=== PATIENT | female | born 1985 | race Caucasian/White ===

== ENCOUNTER → 2024-10-19 | Outpatient (CLI) | payer BC, SELFPAY ==
[2024-10-19 18:04] LABS: Hepatitis B Surface Ab Reactive (Immune) (Immune)
[2024-10-25 07:02] LABS: Measles Antibody (IgG) >300.00 AU/mL; Varicella-Zoster IgG Ab* 1.06 S/CO
== END | disposition home or self-care (01) ==
LOC: COPL 16:05
PROVIDERS: PCP Nurse Practitioner Family; Referring Provider Physician Assistant; Visit Provider Physician Assistant
DX: Z01.84 Encounter for antibody response examination (principal)
CPT/HCPCS: 36415; 86706; 86735; 86762; 86765; 86787